=== PATIENT | male | born 1990 | race African-American/Black ===

== ENCOUNTER 2016-12-14 16:22 | Emergency (ER) | payer MEDICAID, OTHER ==
[~2016-12-14] VITALS: Ht 180.3 cm; Wt 88.5 kg
[~2016-12-14 16:22] MED LIST: VIBRAMYCIN100 MG ORAL
[2016-12-14 16:31] VITALS: BP 142/81
[2016-12-14] MEDS ORDERED: IBUPROFEN600 MG ORAL (16:54)
[2016-12-14 17:05] VITALS: BP 127/84
--- NOTE | 2016-12-14 20:56 | Emergency Room Report ---
History of Present Illness General Chief Complaint: Pain Source: Patient Present Illness [facility] The patient is a 26-year-old male presenting for mouth pain and also STD testing. The patient states that he noticed pain in the mouth described as a 3/ 10 dull ache to the left lower jaw one week prior. Pain does not radiate. He denies injury to this area. Pain is worse with touch. The patient denies any symptoms of STD but states that he is sexually active with males and "just wants to get tested". He denies other symptoms including sore throat, cough, bleeding of the mouth, mouth ulcers, fever, chills, neck pain or stiffness, headache, dizziness, dysuria, hematuria, penile discharge, testicular pain Allergies: Coded Allergies: NO KNOWN ALLERGIES (Unverified Allergy, Unknown, 05/02/15) Patient History Past Medical History: see triage record Pertinent Family History: none Reviewed Nursing Documentation: PMH: Agreed, PSxH: Agreed Nursing Documentation-PMH Past Medical History: No Stated History Review of Systems All Other Systems: negative except mentioned in HPI Physical Exam Vital Signs Date Time Temp Pulse Resp B/P Pulse Ox O2 Delivery O2 Flow Rate FiO2 12/14/16 16:31 98.6 103 16 142/81 97 Room Air Medical Decision Making PA Attestation Dr. Moraes is my supervising physician. Patient management was discussed with my supervising physician Diagnostic Impression: Primary Impression: Oral pain ER Course The patient is a 26-year-old male presenting for mouth pain and also STD testing Differential diagnoses considered but not limited to: Aphthous ulcer, pharyngitis, sialolithiasis, sialadenitis, STD, UTI, among others PE: No apparent distress. Ears: external auditory canal clear. Non erythematous. Bilat TM intact. Cone of light present bilat. No bulging of TM. No serous fluid seen. No cervical lymphad Uvula midline.Oropharynx non erythematous. No tonsils. There is tenderness to palpation of the left floor of the mouth. No oral lesions are seen. No obvious dental caries. No gingival edema or erythema. The patient refuses urinalysis and states that he just wanted STD testing. He also denies treatment for STDs. The patient will followup with dentist. He is also given a list of locations for free STD testing. ER precautions are given Last Vital Signs Date Time Temp Pulse Resp B/P Pulse Ox O2 Delivery O2 Flow Rate FiO2 12/14/16 17:06 88 18 127/84 99 Room Air 12/14/16 17:05 98.3 Status: improved Disposition: HOME, SELF-CARE Condition: Improved Scripts Ibuprofen* (MOTRIN*) 600 Mg Tablet 600 MG ORAL Q8H Y for For Pain, #30 TAB 0 Refills Prov: TAWANDA GAGE 12/14/16 Referrals: NON PHYSICIAN (PCP) Patient Instructions: Dental Pain Additional Instructions: I discussed my findings with the patient. All questions and concerns have been answered. Treatment and medication compliance have been addressed. I advised the patient that they need to follow up with PMD in 3-5 days. Return to ED if symptoms worsen, new symptoms arise, or if needed for any reason. Patient verbalized understanding of discharge instructions. The patient is informed that he needs to followup with a dentist if pain does not cease TAWANDA GAGE December 14, 2016 20:56
== END 2016-12-14 17:19 | disposition home or self-care (01) ==
LOC: EMR 17:05
DX: K13.79 Other lesions of oral mucosa (principal); Z20.2 Contact with and (suspected) exposure to infections with a predominantly sexual mode of transmission
CPT/HCPCS: 99283